=== PATIENT | female | born 1945 | race Caucasian/White ===

== ENCOUNTER 2020-04-03 12:32 | Outpatient (CLI) | payer MEDICARE, BC | END 2020-04-03 23:59 | disposition home or self-care (01) | LOC: 64 CT 12:32 | PROVIDERS: ATTEND Family Medicine | DX: I67.82 Cerebral ischemia (principal) | CPT/HCPCS: 70450 ==

== ENCOUNTER 2020-04-13 10:04 | Outpatient (CLI) | payer MEDICARE, BC | END 2020-04-13 23:59 | disposition home or self-care (01) | LOC: RAD 10:04 | PROVIDERS: ATTEND Family Medicine | DX: R25.1 Tremor, unspecified (principal) | CPT/HCPCS: 95816 ==